=== PATIENT | male | born 1950 | race Caucasian/White ===

== ENCOUNTER 2023-11-10 10:51 | Emergency (ER) | payer MEDICARE, OTHER, SELFPAY ==
[2023-11-10 11:00] VITALS: BP 121/70; PULSE 68; RESP 18; TEMP 36.4; O2SAT 96; BMI 26.5
[2023-11-10 11:41] LABS: Appearance Urine Clear (Clear); Bilirubin Urine Negative (Negative); Blood Urine Negative (Negative); Color Urine Yellow (Yellow); Glucose Urine Negative (Negative); Ketones Urine Negative (Negative); Leukocyte Esterase Urine 3+ (Negative); Nitrite Urine Negative (Negative); Protein Urine 1+ (Negative); Specific Gravity Urine >= 1.030 (1.000-1.030); Urobilinogen Urine 0.2 (0.2-1.0)
--- NOTE | 2023-11-10 11:44 | CRLHL7_ITS ---
For Patients: As a result of the Century Cures Act, medical imaging exams and procedure reports are released immediately into your electronic medical record. You may view this report before your referring provider. If you have questions, please contact your health care provider. INDICATION: Right testicular pain. FINDINGS: A scrotal ultrasound shows normal size, contour, and echogenicity of the testicles with the right testicle measuring 3.3 x 2.5 x 1.5 cm and the left testicle measuring 3.0 x 2.1 x 1.5 cm. 2 mm dystrophic calcification in the midportion of the left testicle. Normal blood flow to the testicles. Two small cysts in the head of the right epididymis measuring up to 4 mm. The epididymides are otherwise unremarkable. IMPRESSION: 1. No acute abnormalities of the testicles or epididymides identified. Dictated by Farhan Castorena MD @ 11/10/2023 1:07:02 PM Dictated by: Farhan Castorena MD @ 11/10/2023 13:07:15 (Electronically Signed)
--- NOTE | 2023-11-10 11:45 | ED_ITS ---
HPI - General Adult General Chief complaint: Urogenital Problems, Male Stated complaint: testicular pain Time Seen by Provider: 11/10/23 11:17 History of Present Illness HPI narrative: This 72-year-old male comes in reporting pain in his right testicle that is been present most of the past month. He states that the pain almost goes away when he is up walking around and seems worse when sitting or lying. He does not report any abdominal pain or flank pain. He does not have any personal history of kidney stones. He does not report any dysuria symptoms except he has increased frequency because of enlarged prostate. 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 He reports that he likes to ride bike but has not done so since having COVID And hopes to get back into bike riding. He does not report any fevers. He does not report any injury event and denies having any back pain. Related Data Home Medications Medication Instructions Recorded Confirmed acalabrutinib 100 mg capsule 100 mg PO Q12H 11/10/23 11/10/23 alfuzosin 10 mg tablet,extended 10 mg PO DAILY 11/10/23 11/10/23 release 24 hr finasteride 5 mg tablet 5 mg PO DAILY 11/10/23 11/10/23 lisinopril 5 mg tablet 5 mg PO QAM 11/10/23 11/10/23 tadalafil 5 mg tablet 5 mg PO DAILY 11/10/23 11/10/23 Previous Rx's Medication Instructions Recorded cephalexin 500 mg capsule 500 mg PO TID 7 days #21 caps 11/10/23 Allergies Allergy/AdvReac Type Severity Reaction Status Date / Time lidocaine Allergy Verified 11/10/23 11:06 Review of Systems Status of ROS: Reports: 10 or more systems reviewed and unremarkable except as noted in History and below Narrative: Constitutional: No fevers, no weight gain or loss. Eyes: No discharge. No vision changes. HENT: No congestion, no sore throat, no ear pain. Cardiovascular: No chest pain, no palpitations. Respiratory: No shortness of breath, no wheezes, no cough. Gastrointestinal: No abdominal pain, no vomiting, no diarrhea. Genitourinary: No dysuria, no hematuria. Right testicular pain as described above. He does not report any swelling or lumps. Musculoskeletal: Normal range of motion. Skin: No rashes, no pruritis. Neurological: No dizziness, weakness, sensory change, speech change. Endo/Heme/Allergies: No bruising or bleeding. No polydipsia. Pysch: no suicidality, no anxiety, no insomnia. All other systems reviewed and are negative. [facility] Social History Smoking Status: Never smoker How often do you have a drink containing alcohol: never AUDIT-C Alcohol total score: 0 Non-prescribed substance use: denies use Exam Narrative: Exam Narrative: Constitutional: Well-developed, well-nourished, no acute distress. HEENT: Normocephalic, atraumatic. Neck: Normal range of motion. Nontender. Supple. Heart: Regular. No murmurs. Normal rate. Intact distal pulses. Lungs: Clear to auscultation. No chest discomfort. No wheezes, rhonchi, or rales. Abdomen: Normal bowel sounds. Nontender. No rebound tenderness. Back: No midline tenderness. Normal range of motion. Extremities: Normal range of motion. No injury. Skin: Intact. No rash. Warm. No erythema or pallor. Neurologic: No altered sensation. No weakness. Alert and oriented. Psychiatric: No suicidality. No anxiety or depression. No insomnia. Nursing notes and vitals signs are reviewed. Const: Vital Signs, click to edit/add: Vital Signs - 24 hr 11/10/23 11:00 Temperature 97.5 F L Pulse Rate [Right Pulse Oximeter] 68 Respiratory Rate 18 Blood Pressure [Le ft Upper Arm] 121/70 Pulse Oximetry 96 Oxygen Delivery Me thod Room Air Course Vital Signs Vital signs: Initial Vital Signs Temperature 97.5 F L 11/10/23 11:00 Temperature Source Temporal Artery Scan 11/10/23 11:00 Pulse Rate 68 11/10/23 11:00 Respiratory Rate 18 11/10/23 11:00 Blood Pressure 121/70 11/10/23 11:00 Blood Pressure Mean 87 11/10/23 11:00 Blood Pressure Position Sitting 11/10/23 11:00 Pulse Oximetry 96 11/10/23 11:00 Oxygen Delivery Method Room Air 11/10/23 11:00 Vital Signs Temperature 97.5 F L 11/10/23 11:00 Pulse Rate 68 11/10/23 11:00 Respiratory Rate 18 11/10/23 11:00 Blood Pressure 121/70 11/10/23 11:00 Pulse Oximetry 96 11/10/23 11:00 Oxygen Delivery Method Room Air 11/10/23 11:00 Temperature 97.5 F L 11/10/23 11:00 Pulse Rate 68 11/10/23 11:00 Respiratory Rate 18 11/10/23 11:00 Blood Pressure 121/70 11/10/23 11:00 Pulse Oximetry 96 11/10/23 11:00 Oxygen Delivery Method Room Air 11/10/23 11:00 Medical Decision Making MDM Narrative Medical decision making narrative: This patient comes in reporting pain in his right testicle as described above. An ultrasound of the scrotum is obtained and shows no acute findings to explain the pain. He does have 2 small cysts in the right epididymis area and I small calcification in the left side. Urinalysis does show evidence of urinary tract infection. The patient has plans to follow-up with a urologist. He did receive a prescription for Keflex. Lab Data Labs: Lab Results 11/10/23 Range/Units 11:22 Urine Color Yellow (Yellow) Urine Appearance Clear (Clear) Urine pH 6.0 (5.0-8.5) Ur Specific [place] >= 1.030 (1.000-1.030) Urine Protein 1+ A (Negative) Urine Glucose (UA) Negative (Negative) Urine Ketones Negative (Negative) Urine Blood Negative (Negative) Urine Nitrite Negative (Negative) Urine Bilirubin Negative (Negative) Urine Urobilinogen 0.2 (0.2-1.0) Ur Leukocyte Esterase 3+ A (Negative) Urine RBC 2-5 A (0-2) Urine WBC 10-25 A (0-5) Ur Squamous Epith Cells Few (None-Few) Other Sediment MODERATE (None) Urine Bacteria Few A (None) Urine Mucus Moderate A (None) Imaging Data US Scrotum: Radiologist's impression: FINDINGS: A scrotal ultrasound shows normal size, contour, and echogenicity of the testicles with the right testicle measuring 3.3 x 2.5 x 1.5 cm and the left testicle measuring 3.0 x 2.1 x 1.5 cm. 2 mm dystrophic calcification in the midportion of the left testicle. Normal blood flow to the testicles. Two small cysts in the head of the right epididymis measuring up to 4 mm. The epididymides are otherwise unremarkable. IMPRESSION: 1. No acute abnormalities of the testicles or epididymides identified. Discharge Plan Discharge Clinical Impression: Urinary tract infection Patient Disposition: Home, Self-Care Condition: Stable Additional Instructions: Take medication as prescribed. Follow up with urologist as scheduled. Return if worsening. Prescriptions: New cephalexin 500 mg capsule 500 mg PO TID 7 Days Qty: 21 0RF No Action acalabrutinib 100 mg capsule 100 mg PO Q12H lisinopril 5 mg tablet 5 mg PO QAM finasteride 5 mg tablet 5 mg PO DAILY alfuzosin 10 mg tablet extended release 24 hr 10 mg PO DAILY tadalafil 5 mg tablet 5 mg PO DAILY Follow Up/Referrals: Desean Kat MD [Primary Care Provider] - Stand Alone Forms: [employer] Info Instructions
[2023-11-10 11:52] LABS: Bacteria Urine Few; Mucus Urine Moderate; Other Sediment Urine MODERATE; Squamous Epithelial Cell Urine Few (None-Few)
== END 2023-11-10 14:11 | disposition home or self-care (01) ==
PROVIDERS: Emergency Provider Emergency Medicine Emergency Medical Services; PCP Family Medicine
DX: N39.0 Urinary tract infection, site not specified (principal)
CPT/HCPCS: 76870; 81001; 87086; 93976; 99283; 99284

== ENCOUNTER 2024-07-06 22:11 | Emergency (ER) | payer MEDICARE, OTHER, SELFPAY ==
[2024-07-06 22:21] VITALS: BP 164/84; PULSE 62; RESP 18; TEMP 36.2; O2SAT 96; BMI 25.8
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
--- NOTE | 2024-07-06 22:43 | CRLHL7_ITS ---
For Patients: As a result of the Century Cures Act, medical imaging exams and procedure reports are released immediately into your electronic medical record. You may view this report before your referring provider. If you have questions, please contact your health care provider. INDICATION: Left-sided chest pain. TECHNIQUE: Chest 2 views. COMPARISON: 11/13/2021. FINDINGS: Cardiovascular and mediastinum: Heart size and vasculature are normal in caliber and appearance. Lungs and pleural spaces: Left upper lobe calcified granuloma. Slight elevation of the right hemidiaphragm, unchanged. No focal consolidation, pleural effusion, or pneumothorax. Bones and soft tissues: Unremarkable for age. IMPRESSION: No evidence of an acute pulmonary process. Dictated by Andres Pastor MD @ 07/06/2024 11:38:24 PM (Electronically Signed)
--- NOTE | 2024-07-06 22:43 | CRLHL7_ITS ---
For Patients: As a result of the Century Cures Act, medical imaging exams and procedure reports are released immediately into your electronic medical record. You may view this report before your referring provider. If you have questions, please contact your health care provider. Indication: Left shoulder pain. Technique: Left shoulder 3 views. Comparison: Chest radiograph 11/08/2021. Findings: Bones: Alignment is normal. No fractures or bone lesions. Cluster of small calcifications about the greater tuberosity, increased since the prior exam. Joint spaces: Unremarkable. Soft tissues: Calcified left upper lobe granuloma. The imaged thorax is otherwise unremarkable. Impression: 1. No acute bony abnormality. 2. Cluster of small calcifications about the greater tuberosity, increased since the prior exam, compatible with rotator cuff calcific tendinopathy. Dictated by Andres Pastor MD @ 07/06/2024 11:40:35 PM (Electronically Signed)
[2024-07-06] MEDS: dexAMETHasone 10 MG/ML inj IVP (22:59)
[2024-07-06 23:26] LABS: Basophils Absolute Auto 0.01 K/uL (0.00-0.30); Basophils Percent Auto 0.2 % (0.0-3.0); Eosinophils Absolute Auto 0.02 K/uL (0.00-0.50); Eosinophils Percent Auto 0.4 % (0.0-7.0); Hematocrit 44.5 % (37.0-53.0); Hemoglobin* 14.7 gm/dL (13.5-17.5); Immature Granulocytes Abs Auto 0.05 K/uL (0.00-0.30); Immature Granulocytes Pct Auto 1.1 %; Lymphocytes Percent Auto 16.1 % (20-44); Mean Corpuscular HGB Conc 33 gm/dL (32-36); Mean Corpuscular Hemoglobin 31 pg (26-34); Mean Corpuscular Volume 94 fL (80-100); Monocytes Percent Auto 10.5 % (0.0-11.0); Neutrophils Absolute Auto 3.29 K/uL (1.7-7.0); Neutrophils Percent Auto 71.7 % (42.0-72.0); Platelet Count* 123 K/uL (140-440); RDW Coefficient of Variation % 13.2 % (11.5-15.5); Red Blood Count 4.74 m/uL (4.30-5.90); White Blood Count* 4.59 K/uL (4.50-11.00)
[2024-07-06] MEDS: KETOROLAC 15 MG/ML inj IVP (23:26)
[2024-07-06 23:27] LABS: Slide Review Reflex No
[2024-07-06 23:28] LABS: Chloride* 102 mmol/L (96-114); Potassium* 4.1 mmol/L (3.6-5.1); Sodium* 138 mmol/L (135-149)
[2024-07-06 23:31] LABS: Anion Gap 7 mEq/L (7-15); Blood Urea Nitrogen* 22 mg/dL (7-30); Carbon Dioxide* 29 mmol/L (20-32); Creatinine* 1.1 mg/dL (0.5-1.5); Estimated Glomerular Filt Rate 72 ml/min; Glucose* 150 mg/dL (60-115)
== END 2024-07-07 00:22 | disposition home or self-care (01) ==
PROVIDERS: Emergency Provider Family Medicine; PCP Family Medicine
DX: M25.512 Pain in left shoulder (principal)
CPT/HCPCS: 36415; 71046; 73030; 80048; 85025; 93005; 96374; 96375; 99284; 99285; J1100; J1885

== ENCOUNTER 2024-07-18 14:16 | Outpatient (CLI) | payer MEDICARE, OTHER, SELFPAY ==
--- NOTE | 2024-07-18 14:30 | CRLHL7_ITS ---
For Patients: As a result of the Century Cures Act, medical imaging exams and procedure reports are released immediately into your electronic medical record. You may view this report before your referring provider. If you have questions, please contact your health care provider. INDICATION : Cervical radiculopathy. TECHNIQUE : Cervical spine MRI without contrast. COMPARISON: COMPARISONCervical spine radiographs from 07/18/2024. FINDINGS: Normal cervical lordotic curve. No recent compression fracture or marrow replacing process. Posterior fossa structures are normal. Cervical cord signal is normal. No extraspinal soft tissue abnormalities. Discs/Endplates: Moderate disc height loss/disc desiccation C6-7. Mild disc degeneration elsewhere. Findings at individual levels as follows: Craniocervical junction: Alignment is maintained. C2-C3: Left uncovertebral arthrosis with mild left neural foraminal stenosis. No right neural foraminal stenosis or spinal canal stenosis. C3-C4: 2 millimeters retrolisthesis. Shallow disc osteophyte complex. Bilateral uncovertebral arthrosis with moderate bilateral neural foraminal stenosis and contact of the exiting C4 nerve roots. C4-C5: 2 millimeters anterolisthesis. Fusion along the right facet. No spinal canal or neural foraminal stenosis. C5-C6: 2 millimeters anterolisthesis. Bilateral facet arthrosis, greater on the right. STIR hyperintensity right-sided facet joint, compatible with active degenerative inflammation. Mild bilateral foraminal stenosis. No spinal canal stenosis. C6-C7: Shallow disc osteophyte complex flattens the thecal sac without spinal canal stenosis. Left uncovertebral arthrosis with moderate left neural foraminal stenosis and contact of the left C7 nerve root. No right neural foraminal stenosis. C7-T1: Left uncovertebral and facet arthrosis mild left neural foraminal stenosis. No right neuroforaminal stenosis or spinal canal stenosis. T1-2 and T2-3: No spinal canal or neural foraminal stenosis. IMPRESSION: 1. At C3-4, moderate bilateral neural foraminal stenosis with contact of the C4 nerve roots. 2. At C5-6, active degenerative inflammation right-sided facet. 3. At C6-7, moderate left neural foraminal stenosis with contact of the exiting left C7 nerve root. 4. No high-grade spinal canal stenosis or extrinsic cord deformity at any cervical level. Cervical cord signal is normal. Dictated by Sang Umaña MD @ 07/21/2024 10:07:30 AM (Electronically Signed)
== END 2024-07-18 14:17 | disposition home or self-care (01) ==
PROVIDERS: PCP Family Medicine; Visit Provider Physician Assistant Surgical
DX: M54.12 Radiculopathy, cervical region (principal); M48.02 Spinal stenosis, cervical region; M25.512 Pain in left shoulder
CPT/HCPCS: 72141